=== PATIENT | male | born 1995 | race Two or more races ===

== ENCOUNTER 2024-04-19 09:47 | Emergency (ER) | payer OTHER ==
[~2024-04-19] VITALS: Ht 188 cm; Wt 108.0 kg
[2024-04-19 11:23] VITALS: BP 140/86; PULSE 100; RESP 16; O2SAT 95
--- NOTE | 2024-04-19 11:26 | ED.PDOC ---
SOB-HPI HPI Comments A 28 YEAR OLD MALE PRESENTS TO THE ED WITH CHIEF COMPLAINT OF COUGH. PATIENT REPORTS THAT HE HAS BEEN EXPERIENCING A COUGH WITH ASSOCIATED SORE THROAT, CHILLS, NAUSEA, AND VOMITING SINCE 3 DAYS AGO ALONG WITH A HEADACHE SINCE TODAY. PATIENT RELAYS THAT HE VAPES REGULARLY. PATIENT DENIES ANY DIARRHEA, ABDOMINAL PAIN, CHEST PAIN, DIZZINESS, OR SOB. NO OTHER SYMPTOMS REPORTED AT THIS TIME OF CARE. Chief Complaint: Flu like Time Seen by MD: 11:23 Primary Care Provider: NONE Reviewed notes: Nurses Notes, Medications, Allergies Information Source: Patient Mode of Arrival: Ambulatory Severity: Moderate Timing: Days Duration: Since onset Context: At Rest PE Risk Factors: None History of: None Prehospital treatment: None Modifying Factors: Nothing Associated Signs and Symptoms: Fever, Cough, Nasal Congestion, Sore Throat If cough with SOB: Productive Past Medical History PAST MEDICAL HISTORY: Denies Surgical History: Denies all surgeries Family History Family History: Reviewed,noncontributory to illness Social History Smoker: Non-Smoker Alcohol: Denies ETOH Use Drugs: Denies Drug Use Lives In: Home Constitutional: reports: chills, fever; denies: diaphoresis, fatigue, malaise, sweats, weakness, others EENTM: reports: nose congestion, throat pain, throat swelling, voice changes; denies: blurred vision, double vision, ear bleeding, ear discharge, ear drainage, ear pain, ear ringing, eye pain, eye redness, hearing loss, mouth pain, mouth swelling, nasal discharge, nose bleeding, nose pain, photophobia, tearing, others Respiratory: reports: cough; denies: hemoptysis, orthopnea, SOB at rest, shortness of breath, SOB with excertion, stridor, wheezing, others Cardiovascular: denies: chest pain, dizzy spells, diaphoresis, Dyspnea on ex ertion, edema, irregular heart beat, left arm pain, lightheadedness, palpitations, PND, syncope, others Gastrointestinal: denies: abdomen distended, abdominal pain, blood streaked bowels, constipated, diarrhea, dysphagia, difficulty swallowing, hematemesis, melena, nausea, poor appetite, poor fluid intake, rectal bleeding, rectal pain, vomiting, others Genitourinary: denies: burning, dysuria, flank pain, frequency, hematuria, incontinence, penile discharge, penile sore, pain, testicle pain, testicle swelling, urgency, others Neurological: reports: headache; denies: dizziness, fainting, left sided numbness, left sided weakness, numbness, paresthesia, pre-existing deficit, r ight sided numbness, right sided weakness, seizure, speech problems, tingling, tremors, weakness, others Musculoskeletal: denies: back pain, gout, joint pain, joint swelling, muscle pain, muscle stiffness, neck pain, others Integumetry: denies: bruises, change in color, change in hair/nails, dryness, laceration, lesions, lumps, rash, wounds, others Allergic/Immunocompromised: denies: Difficulty Healing, Frequent Infections, Hives, Itching, others Hematologic/Lymphatic: denies: anemia, blood clots, easy bleeding, easy bruising, swollen glands, others Endocrine: denies: excessive hunger, excessive sweating, excessive thirst, excessive urination, flushing, intolerance to cold, intolerance to heat, unexplained weight gain, unexplained weight loss, others Psychiatric: denies: anxiety, bipolar disorder, depression, hopeless, panic disorder, schizophrenia, sleepless, suicidal, others All Other Systems: Reviewed and Negative Physical Exam General Appearance: No Apparent Distress, Normal HEENT: PERRL/EOMI, Pharyngeal Erythema (TONSILLAR SWELLING, NO EXUDATES. ), TMs Normal Neck: Full Range of Motion, Non-Tender, Normal, Normal Inspection Respiratory: Chest Non-Tender, Expiration, No Accessory Muscle Use, No Respiratory Distress, Rhonchi Cardiovascular: No Edema, No JVD, No Murmur, No Gallop, Normal Peripheral Pulses, Regular Rate/Rhythm Breast Exam: Deferred Gastrointestinal: No Organomegaly, Non Tender, No Pulsatile Mass, Normal Bowel Sounds, Soft Genitalia: Deferred Pelvic: Deferred Rectal: Deferred Extremities: No calf tenderness, Normal capillary refill, Normal inspection, Normal range of motion, Non-tender, No pedal edema Musculoskeletal : Apperance: Normal Neurologic: Alert, director operating II-XII nml as Tested, No Motor Deficits, Normal Affect, Normal Mood, No Sensory Deficits Cerebellar Function: Normal Reflexes: Normal Skin: Dry, Normal Color, Warm Peripheral Pulses: 2+ carotid (R), 2+ carotid (L) Lymphatic: No Adenopathy Was a procedure done? Was a procedure done?: No Differential Dx Differential Diagnosis: Bronchitis, Pneumonia, Pharyngitis X-Ray, Labs, Meds, VS Vital Signs Date Time Temp Pulse Resp B/P (MAP) Pulse Ox O2 Delivery O2 Flow Rate FiO2 04/19/24 12:04 100.8 04/19/24 11:23 100.8 100 16 140/86 (104) 95 100.8 04/19/24 11:23 100 16 95 Room Air 04/19/24 09:58 97.7 113 16 145/83 (103) 95 Current Medications Medications (Trade) Dose Ordered Sig/Fazal Route Start Time Stop Time Status Last Admin Acetaminophen (Tylenol Tablet) 1,000 mg ONCE ONCE PO 04/19/24 11:30 04/19/24 11:31 DC 04/19/24 12:04 Ceftriaxone Sodium (Rocephin) 1,000 mg ONCE ONCE IM 04/19/24 11:30 04/19/24 11:31 DC 04/19/24 12:04 PATIENT: BARBARA BEDOYA IACCT: [id number]: [id number] : 1995 LOC: ER ROOM / BED: / AGE / SEX: 28 / M ADM STATUS: REG ER SERVICE [id number] ORDERING PHYSICIAN: JOSIAH NAIK PROCEDURE(s): CXR2 - CHEST TWO VIEWS ROUTINE REASON: COUGH AND THROAT PAIN ORDER NUMBER(s): [id number], ACCESSION NUMBER(s): [id number] CHEST RADIOGRAPH Indication: COUGH AND THROAT PAIN Technique: Frontal and lateral view of the chest was obtained Comparison: None FINDINGS: Lines and Tubes: None Lungs: Clear Pleura: No effusion. No pneumothorax. Cardiomediastinal contours: Unremarkable Bones: Unremarkable IMPRESSION: 1. No evidence of acute disease. X-Ray, Labs, Meds, VS Comment EXTERNAL MEDICAL RECORDS REVIEWED: [NONE] INDEPENDENT HISTORIANS: [NONE] SOCIAL DETERMINANTS OF HEALTH: [NONE] LABS ORDERED: NONE REVIEWED AND INTERPRETED RESULTS: NONE IMAGING ORDERED: NONE TREATMENTS ORDERED: ROCPEHIN 1G IM, TYLENOL 1 G PO PROCEDURES PERFORMED: NONE CRITICAL CARE TIME: NONE BASED ON HISTORY OF PRESENT ILLNESS, AND PHYSICAL EXAM, PATIENT WILL BE DISCHARGED HOME. DISCUSSED PLAN FOR DISCHARGE HOME WITH RX. MEDICATION WARNINGS GIVEN. SHARED DECISION MAKING: DISCUSSED WITH PATIENT THAT THEIR WORKUP WAS NORMAL. PATIENT INSTRUCTED TO FOLLOW UP WITH PRIMARY CARE PROVIDER IN 1-2 DAYS FOR RE- EVALUATION OF SYMPTOMS. PATIENT VERBALIZES UNDERSTANDING TO RETURN TO ED FOR NEW OR WORSENING SYMPTOMS OR IF FOLLOW UP WITH PCP CANNOT BE OBTAINED. PATIENT FEELS COMFORTABLE GOING HOME AT THIS TIME. ALL QUESTIONS ADDRESSED AT TIME OF DISCHARGE. Time of 1ST Reevaluation: 12:30 Reevaluation 1ST: Improved Patient Education/Counseling: Diagnosis, Treatment, Need For Follow Up Family Education/Counseling: Need For Follow Up, Other Medical Screening: No EMC Exist At This Time Departure 1 Departure Time of Disposition: 12:30 Impression: Primary Impression: Acute erythematous tonsillitis Additional Impression: Acute bronchitis Qualified Codes: J20.9 - Acute bronchitis, unspecified Disposition: HOME / SELF CARE / HOMELESS Condition: Stable Additional Instructions: FOLLOW-UP WITH PCP IN 1 TO 2 DAYS. TAKE MEDICATIONS PRESCRIBED. RETURN TO ED FOR ANY NEW OR WORSENING SYMPTOMS. e-Prescriptions Azithromycin (Azithromycin) 500 Mg Tab 1 TAB PO DAILY, #5 TAB Prov: JOSIAH NAIK 04/19/24 Promethazine-Dm (Promethazine Dm 6.25-15 mg/5Ml) 1 Madelin Madelin 5 ML PO TID, #160 ML Prov: JOSIAH NAIK 04/19/24 Ibuprofen (Ibuprofen) 800 Mg Tab 1 TAB PO QID, #30 TAB Prov: JOSIAH NAIK 04/19/24 Discharged With: Self Critical Care Note Critical Care Time?: No Stability Stability form required: No Heart Score Heart Score: Heart Score Response (Comments) Value History N/A 0 EKG N/A 0 Age N/A 0 Risk Factors N/A 0 Troponin N/A 0 Total 0 I personally scribed for JOSIAH NAIK ([email or web address]) on 04/19/24 at 11:26. Electronically submitted by Santiago Tee ([email or web address]). I personally scribed for JOSIAH NAIK ([email or web address]) on 04/19/24 at 11:54. Electronically submitted by Santiago Tee ([email or web address]). JOSIAH NAIK Apr 19, 2024 11:26
--- NOTE | 2024-04-19 11:47 | DVH ---
CHEST RADIOGRAPH Indication: COUGH AND THROAT PAIN Technique: Frontal and lateral view of the chest was obtained Comparison: None FINDINGS: Lines and Tubes: None Lungs: Clear Pleura: No effusion. No pneumothorax. Cardiomediastinal contours: Unremarkable Bones: Unremarkable IMPRESSION: 1. No evidence of acute disease.
[2024-04-19 12:04] VITALS: TEMP 100.8
[2024-04-19] MEDS: ACETAMINOPHEN 325 MG TAB PO ONE (12:04)
[2024-04-19] MEDS: cefTRIAXone SOD 1,000 MG VL IM ONE (12:04)
[2024-04-19] MEDS ORDERED: AZIT500T66 PO (12:17)
[2024-04-19] MEDS ORDERED: PROM1SOL4 PO (12:17)
[2024-04-19] MEDS ORDERED: IBUP-1456 PO (12:17)
== END 2024-04-19 12:39 | disposition home or self-care (01) ==
LOC: ER 09:47
DX: J03.90 Acute tonsillitis, unspecified (principal); J20.9 Acute bronchitis, unspecified
CPT/HCPCS: 71046; 96372; 99283; J0696